=== PATIENT | female | born 1950 | race Caucasian/White ===

== ENCOUNTER 2016-04-18 16:38 | Inpatient (IN) | payer SELFPAY ==
[2016-04-18] VITALS (9 sets, daily range): BP systolic 63–190; BP diastolic 35–100
[~2016-04-18 16:38] MED LIST: EPINEPHRINE 1 MG/10 ML DISP.SYRIN. ONE; EPINEPHRINE 30 MG/30 ML VIAL. ONE; SODIUM BICARB ADULT 8.4% 50 MEQ/50 ML DISP.SYRIN. ONE
[2016-04-18] MEDS ORDERED: NOREPINEPHRINE IV ONE (17:00)
[2016-04-18] MEDS ORDERED: NS IV ONE (17:00)
[2016-04-18] MEDS ORDERED: EPINEPHRINE VIAL 4 MG in IV NORMAL SALINE 250ML 250 ML IV ONE (17:15)
[2016-04-18 17:22] LABS: BASO # 0.3 x10^3/uL (0.0-0.2); BASO % 1 % (0-3); EOS % 1 % (0-3); HEMATOCRIT 24.9 % (36.0-47.0); LYMPH # 11.6 x10^3/uL (1.0-4.8); LYMPH % 53 % (24-48); MEAN CORPUSCULAR HEMOGLOBIN 27 pg (25-35); MEAN CORPUSCULAR HGB CONC 28 g/dL (31-37); MEAN CORPUSCULAR VOLUME 94 fL (79-100); MONO % 5 % (0-9); NEUT % 40 % (31-73); PLATELET COUNT 90 x10^3/uL (140-400); RED BLOOD COUNT 2.64 x10^6/uL (3.50-5.40); RED CELL DISTRIBUTION WIDTH 15.4 % (11.5-14.5)
[2016-04-18 17:26] LABS: CALCIUM 8.7 mg/dL (8.5-10.1); GFR 55.6
[2016-04-18] MEDS ORDERED: methylPREDNISolone SOD SUCC PF 125 MG/2 ML VIAL. IV ONE (17:30)
[2016-04-18 17:32] LABS: POTASSIUM 5.9 mmol/L (3.5-5.1)
[2016-04-18 17:42] LABS: ALBUMIN 0.7 g/dL (3.4-5.0); TOTAL BILIRUBIN 0.3 mg/dL (0.2-1.0); TOTAL PROTEIN 3.2 g/dL (6.4-8.2)
[2016-04-18] MEDS ORDERED: MORPHINE SULFATE 2 MG/ML DISP.SYRIN. IV PRN (17:45)
[2016-04-18] MEDS ORDERED: FENTANYL PF 100 MCG/2 ML VIAL. IV PRN ×2 (17:45)
[2016-04-18] MEDS ORDERED: MIDAZOLAM HCL 2 MG/2 ML VIAL. IV PRN ×2 (17:45)
[2016-04-18] MEDS ORDERED: MORPHINE SULFATE 4 MG/ML DISP.SYRIN. IV PRN (17:45)
[2016-04-18 17:47] LABS: % EOS 1 % (0-5); NUCLEATED RBC 2
[2016-04-18 17:48] LABS: PLT ESTIMATE DECREASED (ADEQUATE); TOXIC GRANULATION SLIGHT
[2016-04-18 17:49] LABS: HYPOCHROMIA SLIGHT; POLYCHROMASIA SLIGHT
--- NOTE | 2016-04-18 17:49 | PHYS DOC ---
Past Medical History Past Medical History Unable to obtain at this time Past Surgical History Unable to obtain at this time Social History Unable to obtain at this time Adult General Chief Complaint Chief Complaint: CPR/FULL ARREST HPI HPI Patient is a 65 year old female who presents by EMS in cardiac arrest with massive upper GI bleeding. She called EMS for abdominal and back pain. This pain was described as severe. She had low blood pressure and altered mental status in the ambulance. She then became unresponsive and pulseless and was vomiting blood. EMS placed tibial IO prehospital. notes she has had months of pain to her upper abdomen and mid back. She has been taking [id number] antacid medication such as Maalox. He does not further elaborate on her history, but states she has never been evaluated by GI doctor. states he does not know of any history of ulcer disease or other GI issues. Review of Systems Review of Systems Unable to obtain secondary to clinical status Current Medications Current Medications Current Medications Medications (Trade) Dose Ordered Sig/Shekhar Start Time Stop Time Status Last Admin Dose Admin Epinephrine HCl/ Sodium Chloride (Adrenalin/Iv Sodium Chloride 0.9% 250ml) 254 ml @ 3.81 mls/hr 1X ONCE 04/18/16 17:15 04/21/16 11:54 04/18/16 17:20 3.81 MLS/HR Methylprednisolone Sodium Succinate (Solu-Medrol 125mg Vial) 125 mg 1X ONCE 04/18/16 17:30 04/18/16 17:33 DC Norepinephrine Bitartrate 8 mg/ Sodium Chloride 258 ml @ 1.93 mls/hr 1X ONCE 04/18/16 17:00 04/24/16 06:40 04/18/16 17:29 1.93 MLS/HR Allergies Allergies Physical Exam Physical Exam Constitutional: Nonresponsive. [] HENT: Normocephalic, atraumatic, bilateral external ears normal, nose normal. Large amounts of bright red blood in posterior oropharynx that is actively collecting [] Eyes: Pupils are 5 mm, equal and fixed. There is no extraocular movement. [] Neck: No palpable step-off, supple. [] Cardiovascular: Pulseless, cool extremities [] Lungs & Thorax: Equal bilateral breath sounds that are bagged [] Abdomen: soft, nondistended. [] Skin: Warm, dry, no erythema, no rash. Pale [] Back: Not evaluated at this time. [] Extremities: No obvious deformities, no edema. Cool [] Neurologic: GCS 3 [] Psychologic: Unable to assess at this time [] Current Patient Data Vital Signs Vital Signs Date Time Temp Pulse Resp B/P Pulse Ox O2 Delivery O2 Flow Rate FiO2 04/18/16 17:30 106 20 113/59 100 Ventilator Lab Values Laboratory Tests Test 04/18/16 16:50 04/18/16 17:20 White Blood Count 22.0x10^3/uL (4.0-11.0) H Red Blood Count 2.64x10^6/uL (3.50-5.40) L Hemoglobin 7.0g/dL (12.0-15.5) *L Hematocrit 24.9% (36.0-47.0) L Mean Corpuscular Volume 94fL (79-100) Mean Corpuscular Hemoglobin 27pg (25-35) Mean Corpuscular Hemoglobin Concent 28g/dL (31-37) L Red Cell Distribution Width 15.4% (11.5-14.5) H Platelet Count 90x10^3/uL (140-400) L Neutrophils (%) (Auto) 40% (31-73) Lymphocytes (%) (Auto) 53% (24-48) H Monocytes (%) (Auto) 5% (0-9) Eosinophils (%) (Auto) 1% (0-3) Basophils (%) (Auto) 1% (0-3) Neutrophils # (Auto) 8.7x10^3uL (1.8-7.7) H Lymphocytes # (Auto) 11.6x10^3/uL (1.0-4.8) H Monocytes # (Auto) 1.2x10^3/uL (0.0-1.1) H Eosinophils # (Auto) 0.3x10^3/uL (0.0-0.7) Basophils # (Auto) 0.3x10^3/uL (0.0-0.2) H Segmented Neutrophils % 32% (35-66) L Band Neutrophils % 4% (0-9) Lymphocytes % 59% (24-48) H Monocytes % 3% (0-10) Eosinophils % 1% (0-5) Myelocytes % 1% (0-0) H Nucleated Red Blood Cells 2 Toxic Granulation Slight Platelet Estimate Decreased (ADEQUATE) Polychromasia Slight Hypochromasia Slight Sodium Level 148mmol/L (136-145) H Potassium Level 5.9mmol/L (3.5-5.1) H Chloride Level 113mmol/L (98-107) H Carbon Dioxide Level 14mmol/L (21-32) L Anion Gap 21 (6-14) H Blood Urea Nitrogen 35mg/dL (7-20) H Creatinine 1.0mg/dL (0.6-1.0) Estimated GFR (Cockcroft-Gault) 55.6 Glucose Level 240mg/dL (70-99) H Calcium Level 8.7mg/dL (8.5-10.1) Total Bilirubin 0.3mg/dL (0.2-1.0) Direct Bilirubin 0.0mg/dL (0.0-0.2) Aspartate Amino Transferase (AST) 189U/L (15-37) H Alanine Aminotransferase (ALT) 47U/L (14-59) Alkaline Phosphatase 64U/L (46-116) Total Protein 3.2g/dL (6.4-8.2) L Albumin 0.7g/dL (3.4-5.0) L Prothrombin Time 25.2SEC (11.7-14.0) H Prothrombin Time INR 2.5 (0.8-1.1) H PTT 94SEC (24-38) H Laboratory Tests 04/18/16 16:50 Laboratory Tests 04/18/16 16:50 EKG EKG EKG as interpreted by me as sinus tachycardia, rate 109, no ST-T changes, normal intervals, no ectopy Radiology/Procedures Radiology/Procedures Acute abdominal series as interpreted by me with no acute cardiopulmonary disease process, no free air under the diaphragm, nonobstructive bowel gas pattern Course & Med Decision Making Course & Med Decision Making Pertinent Labs and Imaging studies reviewed. (See chart for details) Patient arrived in cardiac arrest with obvious massive upper GI bleed. Please see nursing code sheet for exact details of resuscitation. Oxygen, monitors, and IVs were placed per ACLS guidelines. She was given epinephrine and IVFs. Uncrossed O+ blood was ordered for transfusion emergently, followed by crossmatched blood. Platelets and FFP were also ordered in 1:1 ratio for massive transfusion, but she was given blood as it was ready faster. She was intubated on first try with some difficulty due to active blood pooling in posterior oropharynx. Cordis catheter was placed to left groin on first try with no complications after ROSC was achieved. Epinephine and levophed drips and stress steroid were ordered for persistent hypotension. Laboratory evaluation reveals anemia, hyperkalemia, hyperglycemia and metabolic acidosis. ABG notes metabolic acidosis. Imaging reveals no acute process and appropriate placement of ET tube. Dr. Bill, gastroenterology, was stat consulted and saw her in the ED. After resuscitation, she was noted to have minimal neurologic function with left pupil response to light and minimal right pupil response to light. She did not require sedation. Discussed grave prognosis and condition with , who accepted news appropriately and at this time would like FULL CODE. Discussed admit with Dr. Lerma, commercial construction estimator for Dr. Santiago, who agrees to admit. Dragon Disclaimer Dragon Disclaimer This electronic medical record was generated, in whole or in part, using a voice recognition dictation system. Critical Care Time Critical care time was 75 minutes exclusive of procedures. Intubation Procedure Intub Indication: Respiratory failure Consent: Unable to give consent due to emergent nature. Medications Used: see nursing note Procedure: The patient was placed in the appropriate position. Intubation was performed with glidescope curved 3 blade and 7.5 endotracheal tube. ETT secured 22cm at gums. Initial confirmation of placement included bilateral breath sounds, tube fogging, adequate chest rise, adequate pulse oximetry reading. A chest x-ray to verify correct placement of the tube showed appropriate tube position. The patient tolerated the procedure well. Complications: none. Central Line Placement Proc Central Line Indication: Vascular access Consent: The patient provided consent for this procedure. Procedure: The patient was positioned appropriately and the skin over the left femoral vein was prepped and draped in a sterile fashion. A large bore needle was used to identify the vein. A guide wire was then inserted into the vein through the needle. A cordis catheter was then inserted into the vessel over the guide wire using the Seldinger technique. All ports showed good, free flowing blood return and were flushed with saline solution. The catheter was then securely fastened to the skin with sutures and covered with a sterile dressing. A post procedure X-ray was ordered. The patient tolerated the procedure well. Complications: none. Departure Departure Impression: Primary Impression: Upper GI bleed Additional Impressions: Cardiac arrest Respiratory failure Metabolic acidosis Disposition: ADMITTED INPATIENT Condition: CRITICAL Problem Qualifiers Additional Impressions: Respiratory failure Chronicity: acute Respiratory failure complication: hypoxia Qualified Code : J96.01 - Acute respiratory failure with hypoxia Antelmo TATUM MD Apr 18, 2016 17:49
[2016-04-18 17:52] LABS: INR 2.5 (0.8-1.1); PROTHROMBIN TIME PATIENT 25.2 SEC (11.7-14.0)
[2016-04-18] MEDS ORDERED: OCTREOTIDE 100 MCG/ML VIAL IV ONE (18:15)
[2016-04-18] MEDS ORDERED: PANTOPRAZOLE IV PUSH 40 MG VIAL. IVP ONE (18:15)
[2016-04-18] MEDS ORDERED: OCTREOTIDE 500 MCG in IV NORMAL SALINE 100ML 100 ML IV PRN (18:30)
[2016-04-18] MEDS ORDERED: PANTOPRAZOLE SODIUM IV 80 MG in IV NORMAL SALINE 100ML 100 ML IV ONE (18:30)
--- NOTE | 2016-04-18 18:31 | PDOC2 ---
CONSULT Date of Consult Date of Consult DATE: 04/18/16 TIME: 18:14 Reason for Consult Reason for Consult: UGI bleed Referring Physician Referring Physician: Dr. Santiago Source Source: Caregiver, Chart review History of Present Illness Reason for Visit: 65 y/o female brought by ER from home, currently unresponsive on ventilator. History obtained from ER staff and . Apparently having some upper abdominal pain, radiating to back at least occasionally, for some weeks/months. Antacids were historically helpful. Never took anti-secretory. Today had "brown-out" mentally, then hematemesis. En route to ER arrested with estimated "downtime" of ~20 minutes. Currently with BP in 80's systolic on levophed/epi. Gastric tube with thin maroon material; has filled roughly 2 cannisters. Per , some recent heartburn w/o dysphagia. No prior h/o ulcer, GB, liver or pancreatic issues. Smoker. H/o alcohol abuse, "dry" for some 24 years. Frequently was using Advil for headache. Some recent constipation w/o diarrhea. denies overt hematochezia or melena as far as he know. Appetite had not changed recently. Unclear any weight loss. Can't obtain GI FH from patient. Past Medical History Cardiovascular: CAD (with inferior wall akinesis per ), HTN Rheumatologic: Fibromyalgia Endocrine: Diabetes Past Surgical History Past Surgical History Some sort of [employer] surgery (hysterectomy?) which antedates 's connection with her. Unclear other. Family History Family History Unobtainable. Social History Social History Does smoke, quantity unclear. No recent alcohol. Current Problem List Problem List Problems Medical Problems: (1) Cardiac arrest Status: Acute (2) Respiratory failure Status: Acute (3) Upper GI bleed Status: Acute Current Medications Current Medications Current Medications Norepinephrine Bitartrate 8 mg/ Sodium Chloride 258 ml @ 1.93 mls/hr 1X ONCE IV ; Start 04/18/16 at 17:00; Stop 04/24/16 at 06:40 Epinephrine HCl/ Sodium Chloride (Adrenalin/Iv Sodium Chloride 0.9% 250ml) 254 ml @ 3.81 mls/hr 1X ONCE IV ; Start 04/18/16 at 17:15; Stop 04/21/16 at 11:54 Methylprednisolone Sodium Succinate (Solu-Medrol 125mg Vial) 125 mg 1X ONCE IV ; Start 04/18/16 at 17:30; Stop 04/18/16 at 17:33; Status DC Fentanyl Citrate (Fentanyl 2ml Vial) 25 mcg PRN Q1HR PRN IV COMM; Start at 17:45 Fentanyl Citrate (Fentanyl 2ml Vial) 50 mcg PRN Q1HR PRN IV COMM; Start at 17:45 Chlorhexidine Gluconate (Peridex) 15 ml BID MM ; Start 04/18/16 at 21:00 Morphine Sulfate 2 mg PRN Q1HR PRN IV COMM; Start 04/18/16 at 17:45 Morphine Sulfate 4 mg PRN Q1HR PRN IV COMM; Start 04/18/16 at 17:45 Midazolam HCl (Versed) 1 mg PRN Q30MIN PRN IV COMM; Start 04/18/16 at 17:45 Midazolam HCl 2 mg 2 mg PRN Q30MIN PRN IV COMM; Start 04/18/16 at 17:45 Pantoprazole Sodium/Sodium Chloride (Protonix Iv/Iv Sodium Chloride 0.9% 100ml) 100 ml @ 10 mls/hr 1X ONCE IV ; Start 04/18/16 at 18:30; Stop 04/19/16 at 04:29 Pantoprazole Sodium 40 mg 40 mg 1X ONCE IVP ; Start 04/18/16 at 18:15; Stop 04/18 at 18:16 Octreotide Acetate/Sodium Chloride (Sandostatin/Iv Sodium Chloride 0.9% 100ml) 101 ml @ 0 mls/hr CONT PRN IV SEE I/O RECORD; Start 04/18/16 at 18:30 Octreotide Acetate (Sandostatin) 50 mcg 1X ONCE IV ; Start 04/18/16 at 18:15; Stop 04/18/16 at 18:16 Unclear what home meds are. Allergies Allergies: Coded Allergies: Unable to Assess (Unverified , 04/18/16) ROS Review of System Unobtainable. Physical Exam General: Other (Obtunded and unresponsive/intubated.) Lungs: Clear to auscultation Heart: Regular rate, Normal S1, Normal S2, No murmurs Abdomen: Soft, Other (obese/no masses/some bowel sounds/circular scar near LLQ/ apparent Pfannensteil incision) Extremities: No cyanosis, No edema Skin: No significant lesion Neuro: Other (generally hyporeflexic and unresponsive to any stimuli/pupils not dilated, but poorly responsive to light) Psych/Mental Status: Other (obtunded) MUSCULOSKELETAL: No deformity, No swelling Vitals VITALS Vital Signs Date Time Temp Pulse Resp B/P Pulse Ox O2 Delivery O2 Flow Rate FiO2 04/18/16 17:05 Ventilator BP in 80'2 systolic on pressors. Tachycardic. Labs Labs Laboratory Tests Test 04/18/16 16:50 04/18/16 17:20 White Blood Count 22.0x10^3/uL (4.0-11.0) Red Blood Count 2.64x10^6/uL (3.50-5.40) Hemoglobin 7.0g/dL (12.0-15.5) Hematocrit 24.9% (36.0-47.0) Mean Corpuscular Volume 94fL (79-100) Mean Corpuscular Hemoglobin 27pg (25-35) Mean Corpuscular Hemoglobin Concent 28g/dL (31-37) Red Cell Distribution Width 15.4% (11.5-14.5) Platelet Count 90x10^3/uL (140-400) Neutrophils (%) (Auto) 40% (31-73) Lymphocytes (%) (Auto) 53% (24-48) Monocytes (%) (Auto) 5% (0-9) Eosinophils (%) (Auto) 1% (0-3) Basophils (%) (Auto) 1% (0-3) Neutrophils # (Auto) 8.7x10^3uL (1.8-7.7) Lymphocytes # (Auto) 11.6x10^3/uL (1.0-4.8) Monocytes # (Auto) 1.2x10^3/uL (0.0-1.1) Eosinophils # (Auto) 0.3x10^3/uL (0.0-0.7) Basophils # (Auto) 0.3x10^3/uL (0.0-0.2) Segmented Neutrophils % 32% (35-66) Band Neutrophils % 4% (0-9) Lymphocytes % 59% (24-48) Monocytes % 3% (0-10) Eosinophils % 1% (0-5) Myelocytes % 1% (0-0) Nucleated Red Blood Cells 2 Toxic Granulation Slight Platelet Estimate Decreased (ADEQUATE) Polychromasia Slight Hypochromasia Slight Sodium Level 148mmol/L (136-145) Potassium Level 5.9mmol/L (3.5-5.1) Chloride Level 113mmol/L (98-107) Carbon Dioxide Level 14mmol/L (21-32) Anion Gap 21 (6-14) Blood Urea Nitrogen 35mg/dL (7-20) Creatinine 1.0mg/dL (0.6-1.0) Estimated GFR (Cockcroft-Gault) 55.6 Glucose Level 240mg/dL (70-99) Calcium Level 8.7mg/dL (8.5-10.1) Total Bilirubin 0.3mg/dL (0.2-1.0) Direct Bilirubin 0.0mg/dL (0.0-0.2) Aspartate Amino Transf (AST/SGOT) 189U/L (15-37) Alanine Aminotransferase (ALT/SGPT) 47U/L (14-59) Alkaline Phosphatase 64U/L (46-116) Total Protein 3.2g/dL (6.4-8.2) Albumin 0.7g/dL (3.4-5.0) Prothrombin Time 25.2SEC (11.7-14.0) Prothromb Time International Ratio 2.5 (0.8-1.1) Activated Partial Thromboplast Time 94SEC (24-38) Laboratory Tests Test 04/18/16 16:50 04/18/16 17:20 White Blood Count 22.0x10^3/uL (4.0-11.0) Red Blood Count 2.64x10^6/uL (3.50-5.40) Hemoglobin 7.0g/dL (12.0-15.5) Hematocrit 24.9% (36.0-47.0) Mean Corpuscular Volume 94fL (79-100) Mean Corpuscular Hemoglobin 27pg (25-35) Mean Corpuscular Hemoglobin Concent 28g/dL (31-37) Red Cell Distribution Width 15.4% (11.5-14.5) Platelet Count 90x10^3/uL (140-400) Neutrophils (%) (Auto) 40% (31-73) Lymphocytes (%) (Auto) 53% (24-48) Monocytes (%) (Auto) 5% (0-9) Eosinophils (%) (Auto) 1% (0-3) Basophils (%) (Auto) 1% (0-3) Neutrophils # (Auto) 8.7x10^3uL (1.8-7.7) Lymphocytes # (Auto) 11.6x10^3/uL (1.0-4.8) Monocytes # (Auto) 1.2x10^3/uL (0.0-1.1) Eosinophils # (Auto) 0.3x10^3/uL (0.0-0.7) Basophils # (Auto) 0.3x10^3/uL (0.0-0.2) Segmented Neutrophils % 32% (35-66) Band Neutrophils % 4% (0-9) Lymphocytes % 59% (24-48) Monocytes % 3% (0-10) Eosinophils % 1% (0-5) Myelocytes % 1% (0-0) Nucleated Red Blood Cells 2 Toxic Granulation Slight Platelet Estimate Decreased (ADEQUATE) Polychromasia Slight Hypochromasia Slight Sodium Level 148mmol/L (136-145) Potassium Level 5.9mmol/L (3.5-5.1) Chloride Level 113mmol/L (98-107) Carbon Dioxide Level 14mmol/L (21-32) Anion Gap 21 (6-14) Blood Urea Nitrogen 35mg/dL (7-20) Creatinine 1.0mg/dL (0.6-1.0) Estimated GFR (Cockcroft-Gault) 55.6 Glucose Level 240mg/dL (70-99) Calcium Level 8.7mg/dL (8.5-10.1) Total Bilirubin 0.3mg/dL (0.2-1.0) Direct Bilirubin 0.0mg/dL (0.0-0.2) Aspartate Amino Transf (AST/SGOT) 189U/L (15-37) Alanine Aminotransferase (ALT/SGPT) 47U/L (14-59) Alkaline Phosphatase 64U/L (46-116) Total Protein 3.2g/dL (6.4-8.2) Albumin 0.7g/dL (3.4-5.0) Prothrombin Time 25.2SEC (11.7-14.0) Prothromb Time International Ratio 2.5 (0.8-1.1) Activated Partial Thromboplast Time 94SEC (24-38) INR 2.5 (on anticoag at home?)/thrombocytopenia/anemia with normal indices. Assessment/Plan Assessment/Plan IMP: 1. UGI bleed. Some dyspeptic issues and NSAID use, so PUD possible. Given h/o DM, SHEPHERD-->cirrhosis-->varices possible. REC: 1. Continue support with IVF's, blood. 2. PPI and octreotide drips. 3. Plan urgent EGD in ICU. 4. Will give FFP/vitamin K. --other pending. Thank you for allowing me to assist in the care of this patient. Please call if questions. DARRELL GROSS MD Apr 18, 2016 18:31
[2016-04-18] MEDS ORDERED: PHYTONADIONE 10 MG/ML AMPUL. SQ ONE (19:00)
[2016-04-18 19:11] LABS: PCO2 ABG 40 mmHg (35-46); PH ABG 6.96 (7.35-7.45); PO2 ABG 306 mmHg (65-108)
[2016-04-18 19:12] LABS: FIO2 ABG 100; HCO3 ABG 9 mmol/L (21-28); SAT O2 ABG 99 % (92-99)
[2016-04-18] MEDS ORDERED: EPINEPHRINE 1 MG/10 ML DISP.SYRIN. ONE ×3 (19:28→20:34)
[2016-04-18] MEDS ORDERED: EPINEPHRINE 1 MG/10 ML DISP.SYRIN. SQ ONE (19:29)
--- NOTE | 2016-04-18 19:58 | PDOC4 ---
PROCEDURE Procedure EGD/epi Indication: UGIB Meds: none; obtunded on ventilator. Findings: E--blood present. No varices seen. G--large clots in fundus. Body and antrum pretty well seen and no lesions. D--Large 1.5-2 cm ulcer posterior wall, post-pyloric bulb. Deep with clot and "ooze" of BRB. Second portion normal. --injected epi 1cc x 4 in/around ulcer, though position difficult and cannot get good enough visualization to clip or BICAP. Placed one clip as marker for other interventions. Tolerated well. ' IMP: Large DU with active "ooze". REC: continue PPI. stop octreotide. more FFP, check INR Discussed with IR; we will update on pressors, etc. and INR, and status. If remains with signs of active bleeding, attempted embolization. Not clear she would survive surgery. Thanks. #[id number] DARRELL GROSS MD Apr 18, 2016 19:58
[2016-04-18 20:31] LABS: CALCIUM 7.8 mg/dL (8.5-10.1); CREATININE 1.4 mg/dL (0.6-1.0); GFR 37.7; POTASSIUM 5.9 mmol/L (3.5-5.1)
[2016-04-18] MEDS: VASOPRESSIN 40 UNIT in IV DEXTROSE 5% 100 ML IV PRN ×3 (20:36→22:54)
[2016-04-18 20:37] LABS: HEMATOCRIT 30.5 % (36.0-47.0); HEMOGLOBIN 9.2 g/dL (12.0-15.5); RED BLOOD COUNT 3.35 x10^6/uL (3.50-5.40); RED CELL DISTRIBUTION WIDTH 17.3 % (11.5-14.5)
[2016-04-18 20:44] LABS: INR 2.1 (0.8-1.1)
[2016-04-18 20:45] LABS: WHITE BLOOD COUNT 40.5 x10^3/uL (4.0-11.0)
[2016-04-18] MEDS ORDERED: CHLORHEXIDINE 0.12% 15 ML MOUTHWASH. MM SCH (21:00)
[2016-04-18] MEDS ORDERED: IOHEXOL 300 MG/ML 100ML VIAL. ONE (21:15)
[2016-04-18] MEDS ORDERED: LIDOCAINE 2% 20 ML VIAL. ONE (21:15)
[2016-04-18] MEDS ORDERED: IOHEXOL 300 MG/ML 50 ML VIAL. ONE (21:16)
[2016-04-18] MEDS ORDERED: GELATIN SPONGE SIZE 12-7MM SPONGE. ONE ×2 (22:15→22:39)
[2016-04-18 22:30] LABS: PROTHROMBIN TIME PATIENT 36.9 SEC (11.7-14.0)
[2016-04-18] MEDS ORDERED: NOREPINEPHRINE VIAL 8 MG in IV NORMAL SALINE 250ML 250 ML IV PRN ×2 (22:45)
[2016-04-18] MEDS ORDERED: EPINEPHRINE VIAL 4 MG in IV NORMAL SALINE 250ML 250 ML IV PRN (23:15)
[2016-04-19] VITALS (8 sets, daily range): BP systolic 58–103; BP diastolic 24–74
[2016-04-19] MEDS ORDERED: LIDOCAINE 1% / SOD BICARB 8.4% 20 ML VIAL. IJ ONE
[2016-04-19] MEDS ORDERED: IOHEXOL 300 MG/ML 100ML VIAL. IART ONE
[2016-04-19] MEDS: VASOPRESSIN 40 UNIT in IV DEXTROSE 5% 100 ML IV PRN ×2 (00:01→02:06)
--- NOTE | 2016-04-19 00:27 | PDOC4 ---
PROCEDURE Procedure Procedure: mesenteric angiogram with embolization of GDA for catastrophic hemorrhage secondary to an ulcer indication: UGI bleed. ulcer seen by GI Complication: non-target embolization of RHA secondary to coil migration after vessels began to vasodilate pure culture operator: Keyur Assist: Sunshine Thomas Specimen: none Blood Loss: 1100 cc from oral suction Findings: massive hemorrhage from duodenal ulcer from GDA. Successful emboliation, however, patient is severly coagulopathic and needs correction of the coagulopathy COURTNEY TRENT MD Apr 19, 2016 00:27
[2016-04-19] MEDS ORDERED: LIDOCAINE 2% 20 ML VIAL. IJ ONE (00:45)
[2016-04-19 00:49] LABS: BODY TEMP ABG 98.6 DEG; CORRECTED PCO2 ABG 35 mmHg; CORRECTED PH ABG 6.71; CORRECTED PO2 ABG 110 mmHg; FIO2 ABG 70; HCO3 ABG 5 mmol/L (21-28); PCO2 ABG 41 mmHg (35-46); PH ABG 6.67 (7.35-7.45); PO2 ABG 131 mmHg (65-108); SAT O2 ABG 96 % (92-99)
--- NOTE | 2016-04-19 00:50 | OP ---
DATE OF SURGERY: 04/18/2016 ICU ROOM: [facility] NAME OF PROCEDURE: Esophagogastroduodenoscopy with epinephrine injection of ulcer. INDICATIONS: A 65-year-old female with evidence for active upper GI bleeding. PROCEDURE TEAM: Darrell Gross M.D. MEDICATIONS: None, patient is obtunded post-arrest and on ventilator support. FINDINGS: Esophagus: After explanation of risks and benefits, informed consent from the patient's family/significant other, the Olympus therapeutic upper endoscope was advanced into the upper esophagus and under direct visualization, then advanced through the esophagus toward the GE junction. The esophagus was mostly blood filled, although glimpses of the wall could be obtained. No varices seemed to be present. STOMACH: Following this, the endoscope was advanced in the stomach. There was large amount of clots in the upper body and fundus with the patient in the prone position. Evaluation of these areas was largely impossible. The mid body into the antrum and prepyloric areas appeared grossly unremarkable though blood stained. A fairly good view of these areas could be obtained. There appeared to be no bleeding or potentially bleeding lesions present. The pylorus was patent and would easily admit the endoscope. DUODENUM: The posterior wall of the immediate post-pyloric bulb was a large ulcer which was quite deep. I would estimate the ulcer is at least 1.5-2 cm in diameter. There appeared to be fresh blood present and possibly an ooze of blood from this. The second portion of the duodenum was examined as well and appeared unremarkable. The endoscope was then withdrawn backwards into the proximal bulb. We attempted to inject epinephrine around the ulcer, however, this was difficult due to the location of the ulcer and we really could not visualize the base. Epinephrine 4 mL was injected in 1 mL aliquots in and around the ulcer. We were unable to achieve adequate visualization of the base of the ulcer to attempt clipping or thermal coagulation. We did place one hemostatic clip adjacent to the ulcer as a marker for other interventions. The endoscope was then withdrawn from the patient with suctioning of insufflated air during withdrawal. She appeared to tolerate the procedure well. IMPRESSION: 1. Large duodenal ulcer with apparent active "ooze" of blood, however, no spurting bleeding. She would remain at very high risk for rebleeding, however. RECOMMENDATIONS: 1. Continue IV proton pump inhibitor. 2. The octreotide can be discontinued. 3. We will give more fresh frozen plasma as we are likely diluting clotting factors with her transfusions. 4. Case was discussed with Interventional Radiology. It would seem that in attempt to embolize the area will be the next step as the patient continues to have signs of bleeding. When she has received her fresh frozen plasma and we have results of her INR, we will update him as regards to her status as well. 6. If the patient remains with signs of active bleeding, an attempt will be made at angiographic embolization. Given her multiple other issues, it is not clear if she would survive surgery for this. Other recommendations pending the above. COMMENT: Thank you for allowing me to participate in the care of this patient with you. Please call if you have questions. CC: Patient's inpatient records DARRELL GROSS MD DR: ZAHIRA/monique JOB#: [id number] / [id number] [facility] DARRELL GROSS MD MTDD
[2016-04-19 00:51] LABS: BASO # 0.4 x10^3/uL (0.0-0.2); BASO % 1 % (0-3); EOS % 1 % (0-3); HEMATOCRIT 25.2 % (36.0-47.0); HEMOGLOBIN 7.4 g/dL (12.0-15.5); LYMPH # 10.9 x10^3/uL (1.0-4.8); LYMPH % 25 % (24-48); MEAN CORPUSCULAR HEMOGLOBIN 29 pg (25-35); MEAN CORPUSCULAR HGB CONC 29 g/dL (31-37); MEAN CORPUSCULAR VOLUME 101 fL (79-100); MONO % 5 % (0-9); NEUT % 69 % (31-73); PLATELET COUNT 70 x10^3/uL (140-400); RED CELL DISTRIBUTION WIDTH 16.7 % (11.5-14.5)
[2016-04-19 00:56] LABS: WHITE BLOOD COUNT 43.1 x10^3/uL (4.0-11.0)
--- NOTE | 2016-04-19 01:04 | RAD ---
Procedures: Mesenteric angiogram with embolization. See vessel selection description below for further details. The procedure was performed under emergent conditions. I did not have a chance to discuss the case with the prior to beginning the case, however, after the completion I spent approximately 30 minutes with the discussing the case. It should be noted the patient was severely coagulopathic with INR of 2.5 at the beginning of the procedure. Due to hemodilution the INR became 4.0 during the procedure. Patient is severely coagulopathic. The right groin was prepped and draped using maximal sterile technique and 1% Xylocaine was used for local anesthesia. Ultrasound guidance demonstrated that the right common femoral artery was patent. An ultrasound image was saved and sent to PACS. Using ultrasound guidance a singlewall puncture was made into the right common femoral artery followed by placement of a 5 [place] sheath. VESSELS INJECTED: 1. Right common femoral artery. There is mild vasospasm. No obvious vascular stenosis is identified. 2. Celiac axis: A Sos 1 catheter was placed in the origin of the celiac axis. Digital subtraction angiogram was performed. Patient is noted to have a completely replaced common hepatic artery. The left gastric artery and splenic artery are unremarkable in appearance. There is mild vasospasm. 2. Superior mesenteric artery: The Sos [address] in the origin of the superior mesenteric artery. Digital subtraction angiogram centered on the endoscopically placed clip was performed. There is diffuse vasospasm. There is massive extravasation from the gastroduodenal artery. 3. Gastroduodenal artery: A prograde microcatheter was used to select the gastroduodenal artery off of the superior mesenteric artery. The catheter was placed into the artery distal to the area of presumed bleeding. Digital subtraction angiogram was performed. Confirmation of catheter placement distal to the bleed was obtained. Again massive active extravasation is identified. At this point multiple embolic coils were placed both distal and proximal to the area of extravasation within the gastroduodenal artery. Because of the patient's severe coagulopathy was difficult to obtain hemostasis. Gelfoam was also injected into the gastroduodenal artery in attempt to further obtain hemostasis. Eventually once hemostasis had been at least temporarily obtained the patient's vessels began to dilate. At this point one of the 3 x 2 mm tornado coils in vertically embolized into the right hepatic artery. 4. Common hepatic artery: After what appear to be sufficient embolization of an obtain the microcatheter was pulled back into the common hepatic artery. Digital subtraction angiogram was again performed which did show persistent extravasation from the gastroduodenal artery. The gastroduodenal artery was reselected with the microcatheter and further embolization with coils and Gelfoam was performed. The coil within the right hepatic artery is identified. There is persistent but slow flow within the right hepatic artery beyond the coil. 5. Superior mesenteric artery: Eventually the microcatheter was removed and a flush injection of the superior mesenteric artery was obtained. No obvious further active extravasation was identified. There does appear to be good hemostasis within the gastroduodenal artery. There does appear to be continued perfusion of the gastroduodenal artery which is likely from collateral branches from the inferior pancreaticoduodenal arteries originating from the more distal superior mesenteric artery. It was felt that these could not be successfully catheterized for further embolization. However, the patient's coagulopathy can be corrected the area of extravasation should completely clot given that there are coils both above and below the area visualized extravasation. The catheter was removed and the sheath was sutured in place to be used as arterial line. Sheath needed to be left in place because of the severe coagulopathy as well. INTERVENTION: Coil and Gelfoam embolization of the gastroduodenal artery with inadvertent nontarget embolization of the right hepatic artery due to undersizing of the coil once vasodilation had occurred within the embolized vessel. Sedation: None Complications: Nontarget embolization of the right hepatic artery due to vasodilation once successful embolization of been performed. At the time of coil placement the coil was the appropriately sized embolic agent for the vessel. Contrast: 140 cc FLUOROSCOPY TIME 25.4 minutes Dap: 127,800 mGycm^2 The patient tolerated the procedure well and will be observed in the intensive care unit. IMPRESSION: 1. Successful coil embolization of the gastroduodenal artery secondary to massive extravasation likely from the patient's visualized ulcer seen on endoscopy. Patient is severely coagulopathic which needs correction for the embolic material to function properly. The patient's nurse is aware of this complication.
[2016-04-19 01:05] LABS: ALBUMIN 1.3 g/dL (3.4-5.0); ALBUMIN/GLOBULIN RATIO 0.8 (1.0-1.7); CREATININE 1.5 mg/dL (0.6-1.0); GFR 34.9; TOTAL BILIRUBIN 0.5 mg/dL (0.2-1.0); TOTAL PROTEIN 2.9 g/dL (6.4-8.2)
[2016-04-19 01:30] LABS: INR > 15.0 (0.8-1.1); PROTHROMBIN TIME PATIENT > 120.0 SEC (11.7-14.0)
[2016-04-19 01:31] LABS: POTASSIUM 9.3 mmol/L (3.5-5.1)
--- NOTE | 2016-04-19 08:38 | EKG ---
[facility] [address] [place] [address] Test Date: 2016-04-18 Test Time: 18:06:26 Pat Name: VALENTINA STUART Department: Room: Gender: F Hair Assistant: : 1950 Requested By: Antelmo TATUM Order Number: [id number] Reading MD: Measurements Intervals [place] Rate: 109 P: 58 MS: 172 QRS: 16 QRSD: 74 T: 68 QT: 340 QTc: 459 Interpretive Statements SINUS TACHYCARDIA QRS(T) CONTOUR ABNORMALITY CONSISTENT WITH ANTEROSEPTAL INFARCT PROBABLY OLD RI6.01 Unconfirmed report No previous ECG available for comparison
--- NOTE | 2016-04-19 11:30 | RAD ---
Acute abdominal series to include a AP chest radiograph 04/18/2016 Clinical History: Upper GI bleeding post intubation. An AP portable semierect digital radiograph of the chest was obtained. Supine and erect AP portable digital radiographs of the abdomen/pelvis were obtained. An ET tube has been placed. The tip of this tube overlies the trachea at the level of the clavicles. An NG tube has been placed. The tip of this tube extends to overlie the lateral aspect of the body the stomach. The cardiac silhouette is mildly enlarged. Thoracic aorta is tortuous. Atherosclerotic calcification of the thoracic aorta is seen. No acute pulmonary infiltrate is noted. No pleural effusion or pneumothorax is seen. The abdominal bowel gas pattern is nonobstructive. There is no evidence of free air. Calcifications are seen within the pelvis consistent with phleboliths. Atherosclerotic calcification of the abdominal aorta and its branches is noted. Degenerative changes are seen involving the thoracic and lumbar spine. Impression: 1. ET tube and NG tube position as outlined above. 2. Nonobstructive bowel gas pattern.
--- NOTE | 2016-04-29 07:16 | PDOC ---
Provider Note Provider Note See admission H&P/ summary dictation #[id number] KAREN CROWDER MD Apr 29, 2016 07:16
--- NOTE | 2016-04-29 09:47 | HP ---
ADMIT DATE: 04/18/2016 ADMISSION HISTORY AND PHYSICAL/ SUMMARY: ATTENDING PHYSICIAN: Dr. Karen Crowder. DATE OF ADMISSION: 04/18/2016. DATE OF : 04/19/2016. CHIEF COMPLAINT: Cardiac arrest. HISTORY OF PRESENT ILLNESS: The patient is a 65-year-old female who presented to the Emergency Room after calling the EMS for abdominal and back pain. She had low blood pressure and altered mental status in the ambulance. She then became unresponsive and pulseless and was vomiting jaiden blood in the ambulance, the history is from ER visit and GI physician's documentation as the patient before she was able to be seen. She had apparently been having some pain in her upper abdomen for several weeks to months that radiated to her back. She had tried an antacid initially, and had some relief, but that apparently became less effective. She was taking Advil frequently for headaches. PAST MEDICAL HISTORY: Significant for coronary artery disease with inferior wall akinesis per her , hypertension, fibromyalgia, and diabetes. PAST SURGICAL HISTORY: MIS[employer] surgery of uncertain type. FAMILY HISTORY: Not able to be obtained due to the patient's unresponsive state. SOCIAL HISTORY: The patient did continue to smoke. No recent alcohol use, although she did have a history of alcohol abuse remotely. Medications apparently she was taking antacids and [id number]-[id number] anti-inflammatories per the record. ALLERGIES: None. HOME MEDICATIONS: Unable to determine. FAMILY HISTORY: Unable to obtain. REVIEW OF SYSTEMS: Unable to obtain except per the history of present illness due to the patient's unresponsive state at the time of admission into the hospital. Physical exam was not completed due to the patient expiring before being able to be seen. HOSPITAL COURSE: The patient was admitted. She was intubated and had a gastric tube that was placed with thin maroon material. She had had large amounts of blood that had been removed already through emesis and the gastric tube. Her blood pressure was in the 80s systolically on Levophed and epinephrine. She received at least 6 units of blood transfusions per the Emergency Room physician. She did go to an upper endoscopy and there was a large amount of blood present with large clots in the fundus, there is a large 1.5 to 2 cm ulcer in the posterior wall of the duodenum in the post-pyloric bulb, it was deep with clot and some ooze of bright red blood. Attempts were made to inject epinephrine in and around the ulcer, although it was difficult and the endoscopy was not able to get good enough visualization to do clipping. She was going to receive FFP due to the massive amount of packed red blood cells, which she ultimately received 16 units of packed red blood cells and also 2 units of fresh frozen plasma as well as 6 units of FFP. Despite the attempts at resuscitation, the patient continued to have bleeding and the decision was made by the to make the patient DNR, she at 0332 on 04/19/2016 due to massive GI bleed due to a large duodenal ulcer. LABORATORY: At the time of admission was WBC 22.0, hemoglobin 7.0, it is unsure whether she was in relation to receiving transfusions at that point. INR was 2.5 despite not being on any anticoagulation, potassium was 5.9, BUN 35, and creatinine 1.0. Glucose 240, AST 189. ABG showed a pH of 6.96 with a pO2 of 360 and a pCO2 of 40 on a 100% ventilation. DISCHARGE DIAGNOSIS: Large duodenal ulcer with massive upper gastrointestinal bleed, which is also the cause of at 03:32, on 04/19/2016. ADDITIONAL DIAGNOSES: 1. Outside of the hospital cardiac arrest and code with severe acidosis probably secondary to the code and GI bleed 2. Anemia secondary to the bleed. 3. Coagulopathy due to massive blood transfusion secondary to blood loss. KAREN CROWDER MD DR: FARHAD/monique JOB#: [id number] / [id number] SHANE
== END 2016-04-19 03:32 | disposition expired | DRG 356 ==
LOC: ER 16:38 → 1 WEST ICU 17:30
PROVIDERS: ADMIT Family Medicine; ATTEND Family Medicine
PROC: 30233L1 Transfusion of Nonautologous Fresh Plasma into Peripheral Vein, Percutaneous Approach (ICD-10-PCS; 2016-04-18)
PROC: 30233N1 Transfusion of Nonautologous Red Blood Cells into Peripheral Vein, Percutaneous Approach (ICD-10-PCS; 2016-04-18)
PROC: 30233K1 Transfusion of Nonautologous Frozen Plasma into Peripheral Vein, Percutaneous Approach (ICD-10-PCS; 2016-04-18)
PROC: 3E0G8GC Introduction of Other Therapeutic Substance into Upper GI, Via Natural or Artificial Opening Endoscopic (ICD-10-PCS; 2016-04-18)
PROC: 0BH17EZ Insertion of Endotracheal Airway into Trachea, Via Natural or Artificial Opening (ICD-10-PCS; 2016-04-18)
PROC: 0D9670Z Drainage of Stomach with Drainage Device, Via Natural or Artificial Opening (ICD-10-PCS; 2016-04-18)
PROC: 5A1935Z Respiratory Ventilation, Less than 24 Consecutive Hours (ICD-10-PCS; 2016-04-18)
PROC: 02HV33Z Insertion of Infusion Device into Superior Vena Cava, Percutaneous Approach (ICD-10-PCS; principal; 2016-04-19)
PROC: 04L33DZ Occlusion of Hepatic Artery with Intraluminal Device, Percutaneous Approach (ICD-10-PCS; 2016-04-19)
PROC: B5181ZA Fluoroscopy of Superior Vena Cava using Low Osmolar Contrast, Guidance (ICD-10-PCS; 2016-04-19)
PROC: 04LY3DZ Occlusion of Lower Artery with Intraluminal Device, Percutaneous Approach (ICD-10-PCS; 2016-04-19)
PROC: 04LY3DZ Occlusion of Lower Artery with Intraluminal Device, Percutaneous Approach (ICD-10-PCS; 2016-04-19)
DX: K26.4 Chronic or unspecified duodenal ulcer with hemorrhage (principal); J96.90 Respiratory failure, unspecified, unspecified whether with hypoxia or hypercapnia; D68.9 Coagulation defect, unspecified; E87.2 Acidosis; I46.9 Cardiac arrest, cause unspecified; I25.10 Atherosclerotic heart disease of native coronary artery without angina pectoris; E11.9 Type 2 diabetes mellitus without complications; F17.200 Nicotine dependence, unspecified, uncomplicated; K74.60 Unspecified cirrhosis of liver; K59.00 Constipation, unspecified; Z90.710 Acquired absence of both cervix and uterus; Z79.899 Other long term (current) drug therapy; Z98.890 Other specified postprocedural states; Z66 Do not resuscitate
CPT/HCPCS: 31500; 36415; 36556; 36600; 37244; 51702; 74022; 75726; 75774; 76937; 80048; 80053; 80076; 82805; 85007; 85027; 85610; 85730; 86850; 86900; 86901; 86920; 86927; 93005; 94002; 96365; 96375; 99292; C1713; C1769; C1887; C1892; C1894; C9113; J0171; J2354; J3490; J7050; P9016; P9017; Q9967; 99291-25; J7030